=== PATIENT | female | born 1960 | race Caucasian/White ===

== ENCOUNTER → 2019-04-05 | Outpatient (CLI) | payer OTHER ==
[~2019-04-05] MED LIST: CETI5 PO; CHOL10002 PO; DOXY100 PO; FLUT.05NI; Norco 5-325 Ta1 EACH PO; PROM25 PO; Valium5 MG PO
== END | disposition home or self-care (01) ==
LOC: LAB SHORT 10:30 → LAB 10:30
DX: J02.9 Acute pharyngitis, unspecified (principal)
CPT/HCPCS: 87081

== ENCOUNTER → 2020-07-04 | Outpatient (CLI) | payer OTHER ==
[~2020-07-04] MED LIST changes: +FISH OIL 1,2001 EAC1 PO; +PROGESTERONE200 MG PO
== END | disposition home or self-care (01) ==
LOC: LAB 13:04
DX: R30.0 Dysuria (principal)
CPT/HCPCS: 87086

== ENCOUNTER → 2021-10-15 | Outpatient (CLI) | payer OTHER ==
[~2021-10-15] MED LIST changes: +LYNPARZA150 MG PO
== END | disposition home or self-care (01) ==
LOC: LAB SHORT 16:30
DX: R30.0 Dysuria (principal)
CPT/HCPCS: 87086

== ENCOUNTER 2021-11-05 01:06 | Day surgery (SDC) | payer OTHER ==
[2021-11-05] MEDS ORDERED: ZOLP5 PO (14:29)
== END 2021-11-05 14:32 | disposition home or self-care (01) ==
LOC: ATC 01:06
DX: Z45.2 Encounter for adjustment and management of vascular access device (principal); K21.9 Gastro-esophageal reflux disease without esophagitis; Z85.43 Personal history of malignant neoplasm of ovary; Z88.0 Allergy status to penicillin; Z88.2 Allergy status to sulfonamides
CPT/HCPCS: J1642

== ENCOUNTER 2022-01-03 08:17 | Day surgery (SDC) | payer OTHER ==
[~2022-01-03 08:17] MED LIST changes: +ZOLP5 PO
== END 2022-01-03 14:40 | disposition home or self-care (01) ==
LOC: ATC 08:17
DX: Z45.2 Encounter for adjustment and management of vascular access device (principal); Z85.43 Personal history of malignant neoplasm of ovary
CPT/HCPCS: J1642

== ENCOUNTER 2022-02-07 14:42 | Day surgery (SDC) | payer OTHER | END 2022-02-07 14:54 | disposition home or self-care (01) | LOC: ATC 14:42 | DX: Z45.2 Encounter for adjustment and management of vascular access device (principal); Z85.43 Personal history of malignant neoplasm of ovary; K21.9 Gastro-esophageal reflux disease without esophagitis; Z88.2 Allergy status to sulfonamides; Z88.0 Allergy status to penicillin | CPT/HCPCS: 96523; J1642 ==

== ENCOUNTER 2022-06-24 00:12 | Day surgery (SDC) | payer OTHER | END 2022-06-24 11:10 | disposition home or self-care (01) | LOC: ATC 00:12 | DX: Z08 Encounter for follow-up examination after completed treatment for malignant neoplasm (principal); Z85.43 Personal history of malignant neoplasm of ovary; K21.9 Gastro-esophageal reflux disease without esophagitis | CPT/HCPCS: 96523; J1642 ==

== ENCOUNTER → 2022-07-04 | Outpatient (CLI) | payer OTHER | END | disposition home or self-care (01) | LOC: LAB SHORT 14:00 | DX: R30.0 Dysuria (principal) | CPT/HCPCS: 87086 ==

== ENCOUNTER → 2024-08-09 | Outpatient (CLI) | payer OTHER | END | disposition home or self-care (01) | LOC: LAB 08:17 → LAB SHORT 08:17 | DX: N39.0 Urinary tract infection, site not specified (principal) | CPT/HCPCS: 87086 ==

== ENCOUNTER 2025-03-22 04:08 | Day surgery (SDC) | payer OTHER ==
[2025-03-22] MEDS ORDERED: Alteplase Recombinant 2 MG / Vial IV PRN (06:50)
[2025-03-22 14:40] VITALS: BP 157/78
== END 2025-03-22 14:45 | disposition home or self-care (01) ==
LOC: ATC 04:08
DX: Z45.2 Encounter for adjustment and management of vascular access device (principal); C56.2 Malignant neoplasm of left ovary; J45.909 Unspecified asthma, uncomplicated; Z88.0 Allergy status to penicillin; Z88.2 Allergy status to sulfonamides; Z91.048 Other nonmedicinal substance allergy status
CPT/HCPCS: 36591; 96375; J1642

== ENCOUNTER → 2025-06-07 | Outpatient (CLI) | payer OTHER | LOC: LAB 09:42 | DX: R10.32 Left lower quadrant pain (principal) ==

== ENCOUNTER 2025-06-19 00:24 | Day surgery (SDC) | payer OTHER ==
[2025-06-19 15:33] VITALS: BP 136/77
== END 2025-06-19 15:40 | disposition home or self-care (01) ==
LOC: ATC 00:24
DX: C56.2 Malignant neoplasm of left ovary (principal); Z88.0 Allergy status to penicillin; Z88.2 Allergy status to sulfonamides; Z91.048 Other nonmedicinal substance allergy status
CPT/HCPCS: 96523; J1642

== ENCOUNTER 2025-07-26 07:16 | Day surgery (SDC) | payer OTHER ==
[2025-07-26 10:30] VITALS: BP 152/65
== END 2025-07-26 10:39 | disposition home or self-care (01) ==
LOC: ATC 07:16
DX: C56.2 Malignant neoplasm of left ovary (principal); Z45.2 Encounter for adjustment and management of vascular access device; J45.909 Unspecified asthma, uncomplicated; B00.9 Herpesviral infection, unspecified; D70.1 Agranulocytosis secondary to cancer chemotherapy; Z79.899 Other long term (current) drug therapy; Z88.0 Allergy status to penicillin; Z88.2 Allergy status to sulfonamides; Z91.09 Other allergy status, other than to drugs and biological substances
CPT/HCPCS: 96523; J1642